=== PATIENT | male | born 1935 | race Caucasian/White ===

== ENCOUNTER 2016-05-14 16:03 | Emergency (ER) | payer MEDICARE, BC ==
[2016-05-14 15:15] LABS: BASO % 0.5 % (0-2); BASO ABSOLUTE COUNT 0.1 tho/cmm (0.0-0.2); EOS % 3.8 % (0-7); EOSINOPHIL ABSOLUTE COUNT 0.4 tho/cmm (0.0-0.7); HCT-HEMATOCRIT 42.3 % (36.0-53.5); HGB-HEMOGLOBIN 14.3 gm/dl (13.5-17.0); IMMATURE GRANULOCYTES ABSOLUTE 0.01 tho/cmm (0-0.03); IMMATURE GRANULOCYTES PERCENT 0.1 % (0-0.3); LYMPH % 20.6 % (20-45); LYMPH ABSOLUTE COUNT 2.1 tho/cmm (0.8-4.5); MCH (MEAN CORPUSCULAR HGB) 32.1 pg (28.0-32.0); MCHC MEAN CORPUSCULAR HGB CONC 33.8 % (32.0-36.0); MCV (MEAN CELL VOLUME) 94.8 fl (82.0-96.0); MEAN PLATELET VOLUME 12.5 cmc (9.4-12.4); MONOCYTE ABSOLUTE COUNT 0.7 tho/cmm (0.0-1.2); NEUTROPHIL ABSOLUTE COUNT 7.1 tho/cmm (1.6-8.0); NEUTROPHIL-AUTOMATED 7.1 tho/cmm (1.6-8.0); RED BLOOD COUNT 4.46 mil/cmm (4.40-5.70); RED CELL DISTRIBUTION WIDTH 14.1 % (12.4-16.4); WHITE BLOOD COUNT 10.4 tho/cmm (4.0-10.0)
[2016-05-14 15:38] LABS: ANION GAP 11 mmol/L (0-20); BLOOD UREA NITROGEN 17 mg/dl (6-24); CALCIUM 8.9 mg/dl (8.5-10.5); CARBON DIOXIDE-VENOUS 28 mmol/L (22-32); CHLORIDE 109 mmol/l (96-110); CREATININE 1.01 mg/dl (0.60-1.30); GLUCOSE 115 mg/dL (70-110); POTASSIUM 4.4 mmol/L (3.7-5.1); SODIUM 144 mmol/L (135-145); eGFR VALUE FOR BLACK 80 mL/Min
[2016-05-14 15:53] LABS: PLATELET COUNT 162 tho/cmm (150-450)
[~2016-05-14 16:03] MED LIST: ADVIL200 M1 PO; AMLODIPINE BESY10 MG PO; ANTIVERT12.5 M1 PO; ASPIRIN PO; ASPIRIN325 M3 PO; ASPIRIN325 MG PO; ASPIRIN81 MG PO; CHLORASEPTIC M1 EAC1 PO; CIPRO500 MG PO; CIPROFLOXACIN PO; COREG25 M1 PO; DITROPAN XL5 M3 PO; ENDOCET 5/325 T1 TAB PO; FLOMAX0.4 M1 PO; IBU-200200 MG PO; IBUPROFEN100 MG PO; IMDUR30 M1 PO; INDERAL20 MG PO; LIPITOR20 M1 PO; LISINOPRIL20 M1 PO; LISINOPRIL20 MG PO; LISINOPRIL5 MG PO; LOPRESSOR25 MG/TA1 PO; NORVASC10 M2 PO; NORVASC10 MG PO; PROPRANOLOL HCL20 M1 PO; PROPRANOLOL HCL20 M2 PO; PROTONIX40 M2 PO; SIMVASTATIN80 MG PO; TESSALON PERLE100 MG PO; TOPROL XL50 MG PO; TUSSIN10 MG/5 ML PO; TYLENOL325 M2 PO; ULTRAM50 MG PO; VICKS DAYQU5 MG/5 ML PO; ZESTRIL5 MG PO; ZOCOR80 MG PO
== END 2016-05-14 16:26 ==
LOC: EDMED 16:03
PROVIDERS: Emergency Medicine
DX: I10 Essential (primary) hypertension (principal); R51 Headache; I25.10 Atherosclerotic heart disease of native coronary artery without angina pectoris; Z79.82 Long term (current) use of aspirin; Z79.899 Other long term (current) drug therapy